=== PATIENT | male | born 1980 | race Caucasian/White ===

== ENCOUNTER 2016-08-07 07:52 | Observation (INO) | payer BC ==
[2016-08-07] MEDS ORDERED: Sodium Chloride 0.9% 2.5 ML Syringe FLUSH PRN ×2 (08:05→10:36)
[2016-08-07] MEDS ORDERED: Sodium Chloride 0.9% 1,000 ML IV ONE (08:05)
[2016-08-07] MEDS ORDERED: Aspirin 81 MG Tab.Chew PO ONE (08:05)
[2016-08-07] MEDS ORDERED: Sodium Chloride 0.9% 10 ML Syringe FLUSH PRN ×2 (08:05→10:36)
--- NOTE | 2016-08-07 08:09 | EDM.PDOC ---
ED HPI GENERAL MEDICAL PROBLEM - General Chief Complaint: Chest Pain Stated Complaint: DIZZY, CHEST PAIN Time Seen by Provider: 08/07/16 08:00 - History of Present Illness INITIAL COMMENTS - FREE TEXT/NARRATIVE: HISTORY AND PHYSICAL: History of present illness: The patient is a 36-year-old male with a history of asthma who presents with complaints of midsternal chest pain pressure that radiated to bilateral lower ribs while he was working about one hour ago. 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 He did not radiate to his back but did make him sweaty and dizzy. He was nauseated with it but he did not pass out or black out. No vomiting or diarrhea. Patient states that the onset it was 8/10 and currently in the ER it is a 2/10 and he did not take any medications. Patient denies any trauma. Patient has had a persistent cough the last one month and has a history of influenza A on June 28. He was treated for this. Patient has no leg pain or swelling and has been eating and drinking normally. Currently in the ED he does not feel it is going to pass out nor did he pass out earlier and has no abdominal pain or shortness of breath. The patient has no significant social history and has no family history. He is unsure of his cholesterol lipid panel and is very active at work and has never had chest pain. Review of systems: As per history of present illness and below otherwise all systems reviewed and negative. Past medical history: As per history of present illness and as reviewed below otherwise noncontributory. Surgical history: As per history of present illness and as reviewed below otherwise noncontributory. Social history: No reported history of drug or alcohol abuse. Family history: As per history of present illness and as reviewed below otherwise noncontributory. Physical exam: General: Well-developed well-nourished male who is nontoxic and his vitals have been noted by me. HEENT: Atraumatic, normocephalic, pupils reactive, negative for conjunctival pallor or scleral icterus, mucous membranes moist, throat clear, neck supple, nontender, trachea midline. Lungs: Clear to auscultation, breath sounds equal bilaterally, chest nontender. Heart: S1S2, regular, negative for clicks, rubs, or JVD. Abdomen: Soft, nondistended, nontender. Negative for masses or hepatosplenomegaly. Negative for costovertebral tenderness. Pelvis: Stable nontender. Genitourinary: Deferred. Rectal: Deferred. Extremities: Atraumatic, negative for cords or calf pain. Neurovascular unremarkable. No pedal edema or leg asymmetry Neuro: Awake, alert, oriented. Cranial nerves II through XII unremarkable. Cerebellum unremarkable. Motor and sensory unremarkable throughout. Exam nonfocal. Diagnostics: EKG chest x-ray CBC CMP amylase lipase troponin Pt refused Inf Test as he had Inf A in Jun and was treated Therapeutics: IV O2 monitor nitroglycerin sublingual NTP We will hold the aspirin as the patientthinks he has an allergy to it that causes swelling After one nitroglycerin patient states the pain is a 0/10 but he feels more shaky. We'll continue to monitor vitals which are within normal limits. I will get results of all testing and discuss these results and care plan with the patient 0930: I. discussed all testing results with the patient and have advised observation admission as his risk ratio is somewhat equivocal. I will speak to the hospitalist about observation admission. 0937: Case discussed with the hospitalist ; she accepts the patient for admission and requested Plavix 75 mg be given Impression: Chest pain rule out ACS Definitive disposition and diagnosis as appropriate pending reevaluation and review of above. Mid-Sternal Pain Score (Numeric/FACES): 2 - Related Data Allergies Allergy/AdvReac Type Severity Reaction Status Date / Time aspirin Allergy Cannot Verified 08/07/16 08:02 Remember azithromycin Allergy Cannot Verified 08/07/16 08:02 Remember Home Meds: Home Meds . [No Known Home Meds] 08/07/16 [History] ED ROS GENERAL - Review of Systems Review Of Systems: ROS reveals no pertinent complaints other than HPI. ED EXAM, GENERAL - Physical Exam Exam: See Below (See dictation) Course - Vital Signs Last Recorded V/S: Last Vital Signs Temp 36.9 C 08/07/16 08:00 Pulse 75 08/07/16 08:52 Resp 18 08/07/16 08:52 BP 116/81 08/07/16 09:03 Pulse Ox 96 08/07/16 08:52 - Orders/Labs/Meds Orders: Active Orders 24 hr Category Date Time Status Cardiac Monitoring [RC] . DIRECTED Care 08/07/16 08:04 Active EKG Documentation Completion [RC] STAT Care 08/07/16 08:04 Active Oxygen Therapy, ED [RC] ASDIRECTED Care 08/07/16 08:04 Active Pulse Oximetry [RC] ASDIRECTED Care 08/07/16 08:04 Active Nitroglycerin [Nitro-Bid 2%] Med 08/07/16 09:33 Once 0.5 gm TOP ONETIME ONE Sodium Chloride 0.9% [Saline Flush] Med 08/07/16 08:05 Active 10 ml FLUSH ASDIRECTED PRN Sodium Chloride 0.9% [Saline Flush] Med 08/07/16 08:05 Active 2.5 ml FLUSH ASDIRECTED PRN Saline Lock Insert [OM.PC] Stat Oth 08/07/16 08:04 Ordered Medication Orders Sodium Chloride (Saline Flush) 10 ml FLUSH ASDIRECTED PRN PRN Reason: Keep Vein Open Sodium Chloride (Saline Flush) 2.5 ml FLUSH ASDIRECTED PRN PRN Reason: Keep Vein Open Labs: Laboratory Tests 08/07/16 08/07/16 08/07/16 Range/Units 08:00 08:00 08:00 WBC 6.70 (4.0-11.0) K/uL RBC 5.21 (4.50-5.90) M/uL Hgb 16.0 (13.0-17.0) g/dL Hct 48.2 (38.0-50.0) % MCV 92.5 (80.0-98.0) fL MCH 30.7 (27.0-32.0) pg MCHC 33.2 (31.0-37.0) g/dL RDW Std Deviation 40.5 (28.0-62.0) fl RDW Coeff of Brea 12 (11.0-15.0) % Plt Count 204 (150-400) K/uL MPV 9.70 (7.40-12.00) fL Neut % (Auto) 56.8 (48.0-80.0) % Lymph % (Auto) 30.4 (16.0-40.0) % Dawson % (Auto) 10.7 (0.0-15.0) % Eos % (Auto) 1.8 (0.0-7.0) % Baso % (Auto) 0.3 (0.0-1.5) % Neut # 3.8 (1.4-5.7) K/uL Lymph # 2.0 (0.6-2.4) K/uL Dawson # 0.7 (0.0-0.8) K/uL Eos # 0.1 (0.0-0.7) K/uL Baso # 0.0 (0.0-0.1) K/uL Nucleated RBC % 0.0 /100WBC Nucleated RBCs # 0 K/uL Sodium 140 (136-146) mmol/L Potassium 3.6 (3.5-5.1) mmol/L Chloride 105 (98-110) mmol/L Carbon Dioxide 27 (21-31) mmol/L BUN 13 (6.0-23.0) mg/dL Creatinine 1.1 (0.6-1.5) mg/dL Est Cr Clr Drug Dosing TNP Estimated GFR (MDRD) > 60.0 ml/min Glucose 99 (60-110) mg/dL Calcium 9.2 (8.8-10.8) mg/dL Total Bilirubin 0.8 (0.1-1.5) mg/dL AST 28 (5-40) IU/L ALT 48 (8-54) IU/L Alkaline Phosphatase 78 (40-150) Troponin I < 0.10 (0.0-0.29) NG/ML Total Protein 7.1 (6.0-8.0) g/dL Albumin 4.2 (3.5-5.0) g/dL Globulin 2.9 (2.0-3.5) g/dL Albumin/Globulin Ratio 1.4 (1.3-2.8) Amylase 152 H (10-90) U/L Lipase 23 (7-80) U/L Meds: Medications Generic Name Dose Route Start Last Admin Trade Name Freq PRN Reason Stop Dose Admin Sodium Chloride 10 ml 08/07/16 08:05 Saline Flush FLUSH ASDIRECTED PRN Keep Vein Open Sodium Chloride 2.5 ml 08/07/16 08:05 Saline Flush FLUSH ASDIRECTED PRN Keep Vein Open Discontinued Medications Generic Name Dose Route Start Last Admin Trade Name Freq PRN Reason Stop Dose Admin Aspirin 324 mg 08/07/16 08:05 08/07/16 09:24 Aspirin PO 08/07/16 08:06 Not Given ONETIME ONE Sodium Chloride 1,000 mls @ 999 mls/hr 08/07/16 08:05 08/07/16 08:59 Normal Saline IV 08/07/16 09:05 999 mls/hr STAT ONE Administration Nitroglycerin 0.4 mg 08/07/16 08:15 08/07/16 09:03 Nitrostat SL 08/07/16 08:26 0.4 mg Q5M RADHA Administration Departure - Departure Time of Disposition: 09:37 Disposition: Refer to Observation Condition: good Clinical Impression: Acute coronary syndrome Forms: ED Department Discharge - My Orders Last 24 Hours: My Active Orders 08/07/16 08:04 Cardiac Monitoring [RC] . DIRECTED EKG Documentation Completion [RC] STAT Oxygen Therapy, ED [RC] ASDIRECTED Pulse Oximetry [RC] ASDIRECTED Saline Lock Insert [OM.PC] Stat 08/07/16 08:05 Sodium Chloride 0.9% [Saline Flush] 10 ml FLUSH ASDIRECTED PRN Sodium Chloride 0.9% [Saline Flush] 2.5 ml FLUSH ASDIRECTED PRN 08/07/16 09:33 Nitroglycerin [Nitro-Bid 2%] 0.5 gm TOP ONETIME ONE - Assessment/Plan Last 24 Hours: My Active Orders 08/07/16 08:04 Cardiac Monitoring [RC] . DIRECTED EKG Documentation Completion [RC] STAT Oxygen Therapy, ED [RC] ASDIRECTED Pulse Oximetry [RC] ASDIRECTED Saline Lock Insert [OM.PC] Stat 08/07/16 08:05 Sodium Chloride 0.9% [Saline Flush] 10 ml FLUSH ASDIRECTED PRN Sodium Chloride 0.9% [Saline Flush] 2.5 ml FLUSH ASDIRECTED PRN 08/07/16 09:33 Nitroglycerin [Nitro-Bid 2%] 0.5 gm TOP ONETIME ONE
--- NOTE | 2016-08-07 08:42 | CR ---
EXAMINATION: Portable chest radiograph. HISTORY: Shortness of breath. FINDINGS: The trachea is midline. The cardiomediastinal silhouette is within normal limits. No pulmonary infil trates, effusions or pneumothorax. Osseous structures appear unremarkable. IMPRESSION: No acute cardiopulmonary process.
[2016-08-07 08:56] LABS: CHLORIDE,CL 105 mmol/L (98-110); SODIUM,NA 140 mmol/L (136-146)
[2016-08-07] MEDS: Nitroglycerin 0.4 MG Tab.SL SL SCH ×3 (09:03→09:52)
[2016-08-07] MEDS ORDERED: Nitroglycerin 2% Oint 1 GM UD Packet TOP ONE (09:33)
[2016-08-07] MEDS ORDERED: Clopidogrel 75 MG Tab PO ONE (09:37)
[2016-08-07] MEDS ORDERED: Acetaminophen 325 MG Tab PO PRN (10:36)
[2016-08-07] MEDS: atorvaSTATin 40 MG Tab PO SCH ×2 (14:27→20:41)
--- NOTE | 2016-08-07 18:51 | PCM.SN ---
- Free Text/Narrative Note: [id number]
[2016-08-07] MEDS ORDERED: Naproxen 500 MG Tab PO SCH (19:00)
[2016-08-07 20:37] VITALS: BP 112/65
[2016-08-07] MEDS ORDERED: Cyclobenzaprine 5 MG Tab PO SCH (22:00)
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
== END 2016-08-07 21:25 | disposition home or self-care (01) ==
LOC: MW.ED 07:52 → MW.MS 09:58
PROVIDERS: ADMIT Internal Medicine; ATTEND Internal Medicine
DX: R07.9 Chest pain, unspecified (principal); E78.5 Hyperlipidemia, unspecified; J45.909 Unspecified asthma, uncomplicated; Z88.1 Allergy status to other antibiotic agents; Z88.8 Allergy status to other drugs, medicaments and biological substances
CPT/HCPCS: 36415; 71010; 80053; 80061; 82150; 83036; 83690; 84484; 85025; 93005; 96360; 99285; A9270; J7040; G0378